=== PATIENT | male | born 1955 | race Caucasian/White ===

== ENCOUNTER 2024-05-02 06:07 | Day surgery (SDC) | payer MEDICARE, SELFPAY ==
[2024-05-02] VITALS (7 sets, daily range): BP systolic 108–154; BP diastolic 78–99; PULSE 51–62; RESP 16; TEMP 36.4–36.5; O2SAT 93–96; BMI 27.8
--- OUTSIDE RECORDS SUMMARY | 2024-05-02 06:13 | XMS_ITS | Clinical Summary ---
Author Organization [facility] Address [place], [place] [address] Care Team Providers Care Towel Folder Name Role Phone Baylee Rutherford Primary Care Provider + Allergies No known active allergies Medications aspirin chewable 81 mg chewable tablet Take 1 tablet by mouth once daily with a meal. 0 8 Active lisinopriL (PRINIVIL; ZESTRIL) 10 mg tabletIndication s:Essential hypertension Take 1 Tablet (10 mg) by mouth once daily. 90 Tablet 3 4 Active simvastatin (ZOCOR) 20 mg tabletIndication s:Hypercholester emia Take 1 Tablet (20 mg) by mouth at bedtime. 90 Tablet 3 4 Active doxazosin (CARDURA) 4 mg tabletIndication s:Essential hypertension Take 1 Tablet (4 mg) by mouth at bedtime. 90 Tablet 3 4 Active fluticasone (50 mcg per actuation) nasal solution (FLONASE)Indicat ions:Sinusitis, unspecified chronicity, unspecified location Inhale 2 Sprays in both nostrils once daily. 16 g 4 Active cyanocobalamin (Vitamin B-12) 2,500 mcg sublingual tabletIndication s:Vitamin B [address] 1 Tablet (2,500 mcg) under the tongue once daily. 90 Tablet 2 5 Active FLUoxetine (PROZAC) 40 mg capsuleIndicatio ns:Depression, recurrent (HC) Take 1 Capsule (40 mg) by mouth once daily in the morning. 90 Capsule 3 5 Active FLUoxetine (PROZAC) 10 mg capsuleIndicatio ns:Depression, recurrent (HC) Take 1 Capsule (10 mg) by mouth once daily in the morning. 7 Capsule 4 04/25/19 25 Discontinu ed(*Med complete/R egimen complete/L evel of care change) FLUoxetine (PROZAC) 20 mg capsuleIndicatio ns:Depression, recurrent (HC) Take 1 Capsule (20 mg) by mouth once daily in the morning. 7 Capsule 4 04/25/19 25 Discontinu ed(*Med complete/R egimen complete/L evel of care change) FLUoxetine (PROZAC) 40 mg capsuleIndicatio ns:Depression, recurrent (HC) Take 1 Capsule (40 mg) by mouth once daily in the morning. 90 Capsule 4 04/25/19 Discontinu ed(*Medica tion adjustment ) Active Problems Problem Noted Date Diagnosed Date Depression with anxiety 11/22/2021 Pancytopenia 07/19/2018 Overview (04/18/2019): Saw hematology - On B 12 supplement with improvement. Hem signed off. B12 indefinetly Hypercholesteremia 02/22/2015 Unspecified essential hypertension 08/27/2006 Encounters Date Type Department Care Team Description 04/27/2024 3:30 PM [employer] Office Visit [place] [address] [place] [address] Steffi José MD Preoperative Exam (DOS: 05/02/24) 04/27/2024 Travel 04/26/2024 3:45 PM [employer] Office Visit [facility] [address] [facility] [place] [address] Cha Epperson MD Consult (Umbilical hernia referred by Dr. Rutherford) 04/25/2024 8:20 AM W[employer]CH[employer] Office Visit [facility] [address] [place] [address] Baylee Rutherford DO Medication Management 04/25/2024 Travel 03/21/2024 Refill [place] [address] [place] [address] Baylee Rutherford, Refill Request (Vitamin B-12) from Last 3 Months Immunizations Name Administration Dates Next Due COVID-19 vaccine (kapturemBio NTech 30mcg/0.3mL) PF, MDV 08/11/2020,07/21/2020 Influenza, IIV4 12/24/2017, 8,03/27/2016,2014 Influenza, IIV4 (=>6mos) MDV 12/23/2018 Influenza, Inactivated AIIV4 (Age 65+ Years) Preserv Free 01/16/2021,01/12/2020 Influenza,LAIV4 Live Intrana terrie (Flumist) 02/15/2014 Pneumococcal Conj 20-valent (Prevnar 20) 11/22/2021 Pneumococcal Poly,23-Valent (Pneumovax) 11/03/2019 Tdap 11/06/2020,11/24/2010,09/06/2009 Zoster (Shingrix-RZV, recombinant) 09/06/2018, Family History Medical History Relation Name Comments Hypertension Brother 1 edvin Hypertension Brother 2 edward Cancer Father Hypertension Father Cancer Mother Hypertension Mother Cancer Sister nick reynoso Hypertension Sister nick reynoso Relation Name Status Comments Brother 1 edvin Alive Brother 2 edward Alive Father Mother Sister nick reynoso Alive Social History Tobacco Use Types Packs/Day Years Used Date Smoking Tobacco: Former Cigarettes 1 25 Smokeless Tobacco: Never Tobacco Cessation:Counseling Given: Yes Comments:quit 23 years ago, around 1989 Alcohol Use Standard Drinks/Week Comments No 0 (1 standard drink = 0.6 oz pur e alcohol) no alcohol since march 2009 PHQ-2 Answer Date Recorded PHQ-2 TOTAL SCORE 0 04/25/2024 Social Connections Answer Date Recorded Frequency of Communication with Friends and Fami ly 0 12/18/2022 Financial Resource Strain Answer Date R ecorded Difficulty of Paying Living Expenses 3 12/18/2022 Difficulty of Paying Living Expenses Not on file 12/18/2022 Food Insecurity Answer Date Recorded Worried About Running Out of Food in the Last Ye ar 1 12/18/2022 Transportation Needs Answer Date Record ed Lack of Transportation (Medical) 1 12/18/2022 Housing Stability Answer Date Recorded Unable to Pay for Housing in the Last Year 1 12/18/2022 Sex and Gender Information Value Date Recorded Sex Assigned at Not on file Legal Sex Male 6:34 AM [employer] Gender Identity Not on file Sexual Orientation Not on file Occupation Industry Job Start Date Job End Date disability Not on file Not on file Not on file Obstetrics History Last Filed Vital Signs Vital Sign Reading Time Taken Comments Blood Pressure 118/86 04/27/2024 3:30 PM [employer] Pulse 72 04/27/2024 3:30 PM [employer] Temperature 36.6 C (97.8 F) 01/01/2024 11:59 AM CDT Respiratory Rate 16 09/06/2018 8:50 AM CDT Oxygen Saturation 98% 04/26/2024 3:38 PM [employer] Inhaled Oxygen Concentration - - Weight 75.8 kg (167 lb) 04/27/2024 3:30 PM [employer] Height 165.7 cm (5' 5.25) 04/27/2024 3:30 PM CS T Body Mass Index 27.58 04/27/2024 3:30 PM [employer] Plan of Treatment Upcoming Encounters Date Type Department Care Team (Late st Contact Info) Description 05/02/2024 8:00 AM [employer] Office Visit [facility] [address] [place] [id number] Cha Epperson MD [address] [place] [address] Health Maintenance Due Date Last Done Comments RSV vaccine for adults or (1 - Risk 60-74 years 1-dose series) 2014 Colonoscopy through age 75 04/22/2022 04/22/2012 COVID-19 vaccine series ( season) 2023 08/11/2020, 07/21/2020 Influenza for age 65+ 11/15/2023 01/16/2021 , 01/12/2020, 12/23/2018, Additional history exists Medicare Wellness for age 65+ 12/21/2024, 12/18/2022, 11/06/2020 BMI (ht and wt on same day) for age 18+ 04/27/2025 04/27/2024, 12/21/2023, 12/18/2022, Additional history exists Depression screening for age 12+ 04/27/2025 04/27/2024, 04/26/2024, 04/25/2024, Additional history exists Lipids for age 45-75 12/20/2028 12/21/2023, 12/18/2022, 11/22/2021, Additional history exists Tetanus booster 11/06/2030 11/06/2020, 11/14, 09/06/2009 Zoster (shingles) series for age 50+ Completed 09/06/2018, 07/05/2018 Hepatitis C screening for ag e 18-79 Completed 12/23/2018 Tdap Completed 11/06/2020, 11/14, 09/06/2009 Pneumococcal series for age 50+ Completed , 11/03/2019 AAA screening age 65-74 Completed 01/12/2023, 01/19 Procedures Procedure Name Priority Date/Time Associated Diagnosis Comments BASIC METABOLIC PANEL Routine 04/27/2024 4:12 PM [employer] Pre-op exam LIPID PANEL Routine 12/21/2023 11:40 AM CDT Hypercholesteremia US ABD AORTA SCREENING Routine 01/12/2023 10:48 AM CDT Screening for AAA (aortic abdominal aneurysm) ANTI HCV Routine 12/23/2018 9:36 AM CDT Need for hepatitis C screening test COLONOSCOPY SCREENING Routine 04/22/2012 Screen for colon cancer from Last 3 Months or Most Recently Relevant to Health Maintenance Results * BASIC METABOLIC PANEL (04/27/2024 4:12 PM [employer]) GLUCOSE 97 65 - 99 mg/dL [facility] Comment: Fasting reference interval UREA NITROGEN (BUN) 20 7 - 25 mg/dL [facility] CREATININE 1.00 0.70 - 1.35 mg/dL [facility] EGFR 81 > OR = 60 mL/min/1. 73m2 [facility] BUN/CREATININE RATIO SEE NOTE: 6 - 22 (calc) [facility] Comment: Not Reported: BUN and Creatinine are within reference range. SODIUM 140 135 - 146 mmol/L [facility] POTASSIUM 5.0 3.5 - 5.3 mmol/L [facility] CHLORIDE 103 98 - 110 mmol/L [facility] CARBON DIOXIDE 30 20 - 32 mmol/L [facility] ELECTROLYTE BALANCE 7 7 - 17 mmol/L (calc) [facility] CALCIUM 9.7 8.6 - 10.3 mg/dL [facility] Blood BLOOD SPECIMEN / Unknown 04/27/2024 4:12 PM W[employer]IC 04/27/2024 4:13 PM WEL[employer]CH[employer]IC us Steffi José MD CHEMISTRY Final Re sult [employer] [facility] [address] [place] [address], [facility] [address] [place] [address] * LIPID PANEL (12/21/2023 11:40 AM CDT) CHOLESTEROL, TOTAL 137 <200 mg/dL [facility] HDL CHOLESTEROL 52 > OR = 40 mg/dL [facility] TRIGLYCERIDES 118 <150 mg/dL [facility] LDL-CHOLESTEROL 65 mg/dL (calc) [facility] Comment: Reference range: <100 Desirable range <100 mg/dL for primary prevention; <70 mg/dL for patients with CHD or diabetic patients with > or = 2 CHD risk factors. LDL-C is now calculated using the Elmer calculation, which is a validated novel method providing better accuracy than the Friedewald equation in the estimation of LDL-C. Leoncio ASHER et al. MORENITA. 2013;310(19): 7719-6202 (http://education.Planandoo.JumpCloud/faq/MNZ628) CHOL/HDLC RATIO 2.6 <5.0 (calc) [facility] NON HDL CHOLESTEROL 85 <130 mg/dL (calc) [facility] Comment: For patients with diabetes plus 1 major ASCVD risk factor, treating to a non-HDL-C goal of <100 mg/dL (LDL-C of <70 mg/dL) is considered a therapeutic option. Blood BLOOD SPECIMEN / Unknown 12/21/2023 11:40 AM CDT 12/21/2023 11:40 AM CDT Baylee Silvermanjanell DO CHEMISTRY Final Re sult [facility] [facility] [address] [place] [address], [facility] [address] [place] [address] * US ABD AORTA SCREENING [[id number]] (01/12/2023 10:48 AM CDT) Anatomical Region Laterality Modality Abdomen, AORTA Ultrasound 01/12/2023 10:4 8 AM CDT Impressions 01/12/2023 12:35 PM CDT 1. No abdominal aortic aneurysm. Narrative 01/12/2023 12:35 PM CDT For Patients: As a result of the Cures Act, medical imaging exams and procedure reports are released immediately into your electronic medical record. You may view this report before your referring provider. If you have questions, please contact your health care provider. EXAM: US ABD AORTA SCREENING LOCATION: [facility] DATE: 01/12/2023 INDICATION: Screening for AAA (aortic abdominal aneurysm). COMPARISON: 01/19/2018 CT chest abdomen pelvis. TECHNIQUE: Transverse and longitudinal images of the aorta. Color flow and spectral Doppler with waveform analysis. FINDINGS: No abdominal aortic aneurysm. There is no significant atheromatous plaque in the abdominal aorta. Limited Doppler demonstrates normal aortoiliac waveforms and velocities. MEASUREMENTS: Proximal Aorta: 2.6 x 2.6 cm. Mid Aorta: 2.0 x 2.0 cm. Distal Aorta: 1.8 x 1.7 cm. Right Common Iliac Artery: 1.2 x 1.1 cm. Left Common Iliac Artery: 1.1 x 1.1 cm. Procedure Note Geovanni Vaughn MD - 01/12/2023 For Patients: As a result of the Cures Act, medical imagingexams and procedure reports are released immediately into your electronicmedical record. You may view this report before your referring provider.If you have questions, please contact your health care provider. EXAM: US ABD AORTA SCREENING LOCATION: [facility] DATE: 01/12/2023 INDICATION: Screening for AAA (aortic abdominal aneurysm). COMPARISON: 01/19/2018 CT chest abdomen pelvis. TECHNIQUE: Transverse and longitudinal images of the aorta. Color flow andspectral Doppler with waveform analysis. FINDINGS: No abdominal aortic aneurysm. There is no significantatheromatous plaque in the abdominal aorta. Limited Doppler demonstratesnormal aortoiliac waveforms and velocities. MEASUREMENTS: Proximal Aorta: 2.6 x 2.6 cm. Mid Aorta: 2.0 x 2.0 cm. Distal Aorta: 1.8 x 1.7 cm. Right Common Iliac Artery: 1.2 x 1.1 cm. Left Common Iliac Artery: 1.1 x 1.1 cm. IMPRESSION: 1. No abdominal aortic aneurysm. Baylee Rutherford DO Final Re sult * ANTI HCV (12/23/2018 9:36 AM CDT) HEPATITIS C ANTIBODY Non-React александр Non-React александр 12/23/2018 3:57 PM CDT [facility] Comment:Antibodies to HCV no t detected; does not exclude the possibility of exposure to HCV. Blood BLOOD SPECIMEN / Unknown [facility] / Unknown 12/23/2018 9:36 AM CDT 12/23/2018 9:36 AM CDT Baylee Rutherford DO SEND OUTS Final Re sult [facility] [employer] [facility] [address] [place] [address], * COLONOSCOPY SCREENING (04/22/2012) Solomon Bourgeois DO GI PROCEDURE ORD Final Result from Last 3 Months or Most Recently Relevant to Health Maintenance Insurance [employer]AGE MR Care Teams Towel Folder Relationship Specialty Start Date End Date Baylee Rutherford DO [address] [place] [address] PCP - General Family Practice 12/25/17
[2024-05-02] MEDS: SODIUM CHLORIDE 0.9 % (FLUSH) 10 ML SYRINGE IVF (07:26)
[2024-05-02] MEDS: LACTATED RINGERS 1000 ML 1,000 ML 100 ML IV (07:26)
--- NOTE | 2024-05-02 07:26 | P.GSOP_ITS ---
Operative Note Date of procedure: 05/02/24 Pre-op diagnosis: Incarcerated umbilical hernia Post-op diagnosis: Same Type of Procedure: Open repair 2 cm incarcerated umbilical hernia with mesh. Indications: The patient is a 68-year-old male who presented with an umbilical hernia that has become larger and irreducible. After discussion of options, he elected to proceed with repair. Procedure Description: After discussing the risks and benefits of the procedure, the patient signed informed consent.? The operative site was marked and the patient was brought to the operating room and placed on the operating table in supine position.? Care was taken to pad the patient's pressure points.?? The patient was then given sedation by anesthesia.?? The operative site was then prepped and draped in the usual sterile fashion.? A time-out was then performed. Local anesthetic was injected into the fascia, skin and subcutaneous tissues. A curvilinear incision was made just above the umbilicus overlying the hernia. Dissection was carried down into the subcutaneous tissue using cautery. The he rnia appeared to contain fat. It was unable to be reduced. The umbilical stalk was dissected off of the fascia with cautery. The hernia sac was entered. It appeared to contain a large amount of omentum. I was unable to reduce this. I carefully dissected through the omentum and sequentially ligated and divided the fat using silk ties. I was then able to reduce the herniated omentum. The dis clay aspect was discarded. The opening measured 2 cm and therefore the decision was made to use mesh. The fascial edges were then cleared circumferentially. A preperitoneal pocket was created using a combination of blunt dissection and cautery. Hemostasis appeared adequate. Once the posterior fascia was clear, a piece of [address] hernia mesh was placed in the preperitoneal space with care to ensure that it laid flat. This was secured into place using 2 0 PDS interrupted sutures. The tails were then trimmed and the fascial opening was closed with a running 0 PDS. The umbilicus was reapproximated to the fascia. The skin was then closed with running absorbable suture. Glue and a sterile dressing was applied. ? The patient was then woken and transported to the recovery area in stable condition. ? The patient tolerated the procedure well. Findings: 2 cm incarcerated umbilical hernia containing omentum. Implants: [address] mesh Anesthesia: MAC Surgeon: Cha Epperson MD Estimated blood loss (mL): 5 Condition: stable Disposition: same day
--- NOTE | 2024-05-02 07:26 | W.PM.H&PU ---
History & Physical Update History & Physical Update H&P Reviewed and patient assessed: No changes noted
[2024-05-02] MEDS: CEFAZOLIN 1 GM inj IVP (07:41)
[2024-05-02] MEDS: BUPIVACAINE 0.25% 30 ML INJECTION (07:47)
--- NOTE | 2024-05-02 08:59 | P.ANES_ITS ---
Anesthesia Charges Start Date/Time Anesthesia Start Date: 05/02/24 Anesthesia Start Time: 07:27 Stop Date/Time Anesthesia Stop Date: 05/02/24 Anesthesia Stop Time: 08:58 Coding CPT Codes CPT Codes: ANESTH REPAIR OF HERNIA - 53503 ([id number]) P2 - PATIENT W/MILD SYST DISEASE, QZ - FIRE PATROLLER SVC W/O PHOTO MASK CLEANER BY
--- NOTE | 2024-05-02 08:59 | W.ANESCHARGE ---
Anesthesia Charges Start Date/Time Anesthesia Start Date: 05/02/24 Anesthesia Start Time: 07:27 Stop Date/Time Anesthesia Stop Date: 05/02/24 Anesthesia Stop Time: 08:58 Coding CPT Codes CPT Codes: ANESTH REPAIR OF HERNIA - 22863 ([id number]) P2 - PATIENT W/MILD SYST DISEASE, QZ - MICROPALEONTOLOGIST SVC W/O MEDICAID COLLECTION SPECIALIST BY
[2024-05-02] MEDS: ACETAMINOPHEN 325 MG TABLET 650 MG PO (09:23)
[2024-05-02] MEDS: hydrOXYzine pamoate 25 MG CAPSULE PO (09:23)
== END 2024-05-02 10:55 | disposition home or self-care (01) ==
PROVIDERS: Visit Provider Surgery
PROC: (CPT 49592; principal; 2024-05-02 07:30)
DX: K42.0 Umbilical hernia with obstruction, without gangrene (principal)
CPT/HCPCS: 49592; 00750; 00830; A9270; C1781; J0665; J0690; J1100; J2704; J3010; J3490; J7120